=== PATIENT | female | born 1985 | race Caucasian/White ===

== ENCOUNTER → 2019-10-13 09:50 | Outpatient (CLI) | payer BC, SELFPAY ==
--- NOTE | ~2019-10-13 | US_ITS ---
EXAMINATION: US breast RT limited HISTORY: Palpable lump of the inner right breast TECHNIQUE: Limited right breast ultrasound is performed. FINDINGS: There is a 10 mm x 2 mm oval, circumscribed, parallel, hypoechoic mass in the skin of the r ight breast at the 11:00 location 11 cm from the nipple corresponding to the palpable abnormality of concern. This demonstrates a tract to the skin, consistent with a sebaceous cyst. IMPRESSION: Sebaceous cyst of the right breast corresponding to the palpable abnormality of concern. BI-RADS Category 2: Benign finding(s). Reviewed, dictated and finalized at location A. [employer]
== END ==
PROVIDERS: PCP Internal Medicine; Visit Provider Surgery
DX: N60.81 Other benign mammary dysplasias of right breast (principal)
CPT/HCPCS: 76642